=== PATIENT | female | born 1975 | race Caucasian/White ===

== ENCOUNTER 2023-04-09 22:10 | Emergency (ER) | payer BC, OTHER ==
[~2023-04-09] VITALS: Ht 162 cm; Wt 97.2 kg
[2023-04-09] MEDS ORDERED: NS IV 1000 ML 1,000 ML IV STA (22:32)
[2023-04-09] MEDS ORDERED: metroNIDAZOLE 500 MG (FLAGYL) TAB PO STA (22:32)
[2023-04-09] MEDS ORDERED: KETOROLAC 15 MG/ML VIAL IVP STA (22:32)
[2023-04-09 22:37] LABS: BASOPHILS % (AUTO) 0 % (0-10); EOSINOPHILS # (AUTO) 0.2 10^3/uL (0.0-0.3); EOSINOPHILS % (AUTO) 2 % (0-10); HEMATOCRIT 43 % (35-52); HEMOGLOBIN 13.9 g/dL (11.5-16.0); LYMPHOCYTES # (AUTO) 2.7 10^3/uL (1.0-4.0); LYMPHOCYTES % (AUTO) 28 % (12-44); MEAN CORPUSCULAR HEMOGLOBIN 31 pg (25-34); MEAN CORPUSCULAR HGB CONC 33 g/dL (32-36); MEAN CORPUSCULAR VOLUME 94 fL (80-99); MEAN PLATELET VOLUME 9.6 fL (9.0-12.2); MONOCYTES % (AUTO) 11 % (0-12); NEUTROPHILS # (AUTO) 5.6 10^3/uL (1.8-7.8); NEUTROPHILS % (AUTO) 59 % (42-75); PLATELET COUNT 303 10^3/uL (130-400); WHITE BLOOD COUNT 9.5 10^3/uL (4.3-11.0)
--- NOTE | 2023-04-09 22:40 | ED Upper Extremity ---
General Stated Complaint: FISH SPINES IN LEFT HAND Source: patient History of Present Illness Date Seen by Provider: Apr 09, 2023 Time Seen by Provider: 22:18 Initial Comments 47-year-old female presenting with complaints of left hand pain and swelling and since getting stuck by barbs from a large mouth bypass. She was fishing with her relatives and one of them because of fish and it had ended up rolling across her hand. In the process of that she had some barbs get stuck into her hand between her thumb and index finger. She had immediately washed it with some soap and water and try to get the barbs out of the skin. She had been soaked it in Epsom salts for the last hour. She was worried that there was redness started to go up her arm. She does have a history of arthritis and gets methotrexate. She also has had spinal fusion and gets antibiotics prior to dental work. She did have some amoxicillin leftover with her so she took a dose of that this evening. Since she was worried that there is infection will start to spread up her arm she came to the emergency department. After arriving in the emergency department she started feeling short of breath and feeling sick to her stomach and like she was having trouble breathing. She did have an elevated blood pressure and seemed to be anxious. Onset: this evening (4-5 hours prior to arrival) Severity: moderate Pain/Injury Location: left hand Method of Injury: other (Stuck by barbs on a large mouth mass) Modifying Factors: Worse With Movement Allergies and Home Medications Allergies Coded Allergies: diphenhydramine (Verified Allergy, Unknown, 04/09/23) Patient Home Medication List Home Medication List Reviewed: Yes Cephalexin (Cephalexin) 500 Mg Capsule, 500 MG PO QID Prescribed by: YANICK BHAT on 04/09/232350 Levofloxacin (Levofloxacin) 500 Mg Tablet, 500 MG PO DAILY Prescribed by: YANICK BHAT on 04/09/232350 Metronidazole (Metronidazole) 500 Mg Tablet, 500 MG PO BID Prescribed by: YANICK BHAT on 04/09/232350 Review of Systems Constitutional: No chills, No fever EENTM: no symptoms reported Respiratory: short of breath Cardiovascular: palpitations Gastrointestinal: nausea Genitourinary: No dysuria Musculoskeletal: muscle pain (Pain to the left hand between her thumb and index finger where she had been stuck with the barbs off the fish) Skin: change in color (Mild erythema to her left hand along with swelling) Psychiatric/Neurological: Anxiety Past Jheicxo-Aqocna-Ptjjqi Hx Past Medical History Surgery/Hospitalization HX: Rheumatoid arthritis being treated with methotrexate, spinal fusion Physical Exam Vital Signs Vital Signs - First Documented 04/09/23 22:18 Temp 36.2 Pulse 71 Resp 18 B/P (MAP) 175/104 (127) Pulse Ox 98 O2 Delivery Room Air Capillary Refill : Height, Weight, BMI Height: '" Weight: lbs. oz. kg; BMI Method: General Appearance: WD/WN, obese, other (Anxious) HEENT: PERRL/EOMI Cardiovascular: normal peripheral pulses, regular rate, rhythm Respiratory: chest non-tender, lungs clear, normal breath sounds, no respiratory distress, no accessory muscle use Hand: Left, soft tissue tenderness (Left hand between her thumb and index finger), swelling Neurologic/Tendon: normal sensation, normal motor functions Neurologic/Psychiatric: alert, oriented x 3 Skin: warm/dry Progress/Results/Core Measures Results/Orders Lab Results Laboratory Tests Test 04/09/23 22:34 Range/Units White Blood Count 9.5 4.3-11.0 10^3/uL Red Blood Count 4.54 3.80-5.11 10^6/uL Hemoglobin 13.9 11.5-16.0 g/dL Hematocrit 43 35-52 % Mean Corpuscular Volume 94 80-99 fL Mean Corpuscular Hemoglobin 31 25-34 pg Mean Corpuscular Hemoglobin Concent 33 32-36 g/dL Red Cell Distribution Width 12.7 10.0-14.5 % Platelet Count 303 130-400 10^3/uL Mean Platelet Volume 9.6 9.0-12.2 fL Immature Granulocyte % (Auto) 0 % Neutrophils (%) (Auto) 59 42-75 % Lymphocytes (%) (Auto) 28 12-44 % Monocytes (%) (Auto) 11 0-12 % Eosinophils (%) (Auto) 2 0-10 % Basophils (%) (Auto) 0 0-10 % Neutrophils # (Auto) 5.6 1.8-7.8 10^3/uL Lymphocytes # (Auto) 2.7 1.0-4.0 10^3/uL Monocytes # (Auto) 1.0 0.0-1.0 10^3/uL Eosinophils # (Auto) 0.2 0.0-0.3 10^3/uL Basophils # (Auto) 0.0 0.0-0.1 10^3/uL Immature Granulocyte # (Auto) 0.0 0.0-0.1 10^3/uL Sodium Level 140 135-145 MMOL/L Potassium Level 3.5 L 3.6-5.0 MMOL/L Chloride Level 102 98-107 MMOL/L Carbon Dioxide Level 28 21-32 MMOL/L Anion Gap 10 5-14 MMOL/L Blood Urea Nitrogen 21 H 7-18 MG/DL Creatinine 0.92 0.60-1.30 MG/DL Estimat Glomerular Filtration Rate 77 BUN/Creatinine Ratio 23 Glucose Level 91 70-105 MG/DL Calcium Level 9.6 8.5-10.1 MG/DL Corrected Calcium 9.4 8.5-10.1 MG/DL Total Bilirubin < 0.2 0.1-1.0 MG/DL Aspartate Amino Transf (AST/SGOT) 26 5-34 U/L Alanine Aminotransferase (ALT/SGPT) 24 0-55 U/L Alkaline Phosphatase 83 40-136 U/L C-Reactive Protein 0.71 H <0.50 MG/DL Total Protein 7.3 6.4-8.2 GM/DL Albumin 4.2 3.2-4.5 GM/DL My Orders Orders - YANICK BHAT MD Cbc With Automated Diff (04/09/23 22:32) Comprehensive Metabolic Panel (04/09/23 22:32) Ed Iv/Invasive Line Start (04/09/23 22:32) Crp Fs (04/09/23 22:32) Ns Iv 1000 Ml (Sodium Chloride 0.9%) (04/09/23 22:32) Ketorolac Injection (Toradol Injection) (04/09/23 22:32) Metronidazole Tablet (Flagyl Tablet) (04/09/23 22:32) Levofloxacin Tablet (Levaquin Tablet) (04/09/23 22:32) Ondansetron Injection (Zofran Injectio (04/09/23 22:53) Ceftriaxone Iv/Im (Ceftriaxone Iv/Im) (04/10/23 00:01) Vital Signs/I&O 04/09/23 04/10/23 22:18 00:21 Temp 36.2 Pulse 71 68 Resp 18 18 B/P (MAP) 175/104 (127) 142/83 Pulse Ox 98 95 O2 Delivery Room Air Room Air Progress Progress Note #1: Progress Note Potential diagnosis of developing cellulitis, anxiety, Mycobacterium marinum. Establish peripheral IV access and send basic labs of complete blood count and comprehensive metabolic profile and CRP. Administer Rocephin 1 g IV and give Levaquin 500 mg by mouth along with Flagyl 500 mg. Based on review of medical website [facility] for a potential contaminated water infection of the skin the cephalosporins in addition to gama quinolone and metronidazole and would cover for potential infection. Will start with dose here in the ED and prescribed oral doses for the next week. Encouraged to check back with her regular provider when she gets back to [place]. Progress Note #2: Progress Note Labs did not show elevated white blood cell count as it was at 9.5. Her comprehensive metabolic panel did not show acute electrolyte abnormalities other than she did have slight elevation of her CRP which is understandable with her having rheumatoid arthritis requiring methotrexate. Her symptoms were improving as she was getting the Toradol, fluids, antibiotics. Reviewed with the patient that her tests were not showing sepsis. From my review of [facility] resource she needed 3 antibiotics for coverage for potential contamination from water borne puncture wound. Cephalosporin, fluoroquinolone, metronidazole. She was started on the medications here in the ED and she states that she will be going back to [place] in the morning so prescription sent to the [facility] in [place]. Counseled on follow-up and return precautions and advised to check back with the clinic this week for continued concerns Departure Impression Primary Impression: Puncture wound of hand, left Qualified Codes: S61.432A - Puncture wound without foreign body of left hand, initial encounter Disposition: 01 HOME, SELF-CARE Condition: Stable Departure-Patient Inst. Decision time for Depature: 23:49 Referrals: NO,LOCAL PHYSICIAN (PCP/Family) Primary Care Physician Patient Instructions: Wound Care ED Add. Discharge Instructions: Take the full course of antibiotics to treat for the puncture wound from the fins on the fish. Follow-up with your regular doctor this week especially if you are having worsening symptoms or more concerns. Continue with anti-inflammatories and acetaminophen as needed for pain. Try to keep your hand elevated to help with pain and swelling. Scripts Metronidazole (Metronidazole) 500 Mg Tablet 500 MG PO BID for puncture wound hand for 7 Days, #14 TAB 0 Refills Prov: YANICK BHAT MD 04/09/23 Levofloxacin (Levofloxacin) 500 Mg Tablet 500 MG PO DAILY for puncture wound hand for 7 Days, #7 TAB 0 Refills Prov: YANICK BHAT MD 04/09/23 Cephalexin (Cephalexin) 500 Mg Capsule 500 MG PO QID for puncture wound hand for 7 Days, #28 CAP 0 Refills Prov: YANICK BHAT MD 04/09/23 YANICK BHAT MD Apr 09, 2023 22:40
[2023-04-09] MEDS ORDERED: ONDANSETRON 4 MG/2 ML (SDV) Z0FRAN IVP STA (22:53)
[2023-04-09 22:54] LABS: BUN/CREATININE RATIO 23; CARBON DIOXIDE 28 MMOL/L (21-32); CHLORIDE 102 MMOL/L (98-107); CREATININE SERUM 0.92 MG/DL (0.60-1.30); GFR ESTIMATED 77; GLUCOSE 91 MG/DL (70-105); POTASSIUM 3.5 MMOL/L (3.6-5.0); SODIUM 140 MMOL/L (135-145)
[2023-04-09 22:55] LABS: ALANINE AMINOTRANSFERASE 24 U/L (0-55); ALBUMIN 4.2 GM/DL (3.2-4.5); ALKALINE PHOSPHATASE 83 U/L (40-136); BILIRUBIN,TOTAL < 0.2 MG/DL (0.1-1.0); CALCIUM 9.6 MG/DL (8.5-10.1); TOTAL PROTEIN 7.3 GM/DL (6.4-8.2)
[2023-04-09] MEDS ORDERED: METR-145 PO (23:51)
[2023-04-09] MEDS ORDERED: LEVO-55 PO (23:51)
[2023-04-09] MEDS ORDERED: CEPH500C PO (23:51)
[2023-04-10] MEDS ORDERED: cefTRIAXone IV/IM 1,000 MG in NS (IVPB) 50 ML 50 ML IV STA (00:01)
[2023-04-10 00:21] VITALS: BP 142/83
== END 2023-04-10 00:21 | disposition home or self-care (01) ==
LOC: ER FS 22:14
DX: S61.432A Puncture wound without foreign body of left hand, initial encounter (principal); E66.9 Obesity, unspecified; Z68.37 Body mass index [BMI] 37.0-37.9, adult; W45.8XXA Other foreign body or object entering through skin, initial encounter
CPT/HCPCS: 36415; 80053; 85025; 86141; 96361; 96374; 96375